=== PATIENT | male | born 1970 | race Caucasian/White ===

== ENCOUNTER 2016-10-14 12:22 | Emergency (ER) | payer SELFPAY ==
[~2016-10-14] VITALS: Ht 185.4 cm; Wt 119.0 kg
[~2016-10-14 12:22] MED LIST: Z.0.NO CURRENT MEDS
[2016-10-14 12:38] VITALS: BP 148/88; PULSE 69; RESP 16; TEMP 98.9; O2SAT 99
== END 2016-10-14 13:47 | disposition left against medical advice (07) ==
LOC: PHED 12:22
DX: M54.5 Low back pain (principal); Z53.21 Procedure and treatment not carried out due to patient leaving prior to being seen by health care provider
CPT/HCPCS: 99281